=== PATIENT | female | born 1965 | race Hispanic/Latino ===

== ENCOUNTER 2021-08-23 19:19 | Emergency (ER) | payer MEDICAID, OTHER ==
[~2021-08-23] VITALS: Ht 157.5 cm; Wt 68.0 kg
[2021-08-23] MEDS ORDERED: ONDANSETRON 4MG INJ ONE (19:23)
[2021-08-23 19:38] LABS: BASOPHILS % (AUTO) 0.2 % (0.0-5.0); EOSINOPHILS % (AUTO) 0.1 % (0.0-8.0); HEMATOCRIT 43.5 % (36-48); LYMPHOCYTES % (AUTO) 10.7 % (21.0-51.0); MEAN CORPUSCULAR HGB CONC 33.1 g/dL (32.0-36.0); MEAN CORPUSCULAR VOLUME 84.6 fL (79-99); MONOCYTES % (AUTO) 3.1 % (3.0-13.0); NEUTROPHILS % (AUTO) 85.5 % (40.0-77.0); PLATELET COUNT (AUTO) 391 K/uL (130-400); RED BLOOD CELL COUNT(AUTO) 5.14 MIL/uL (4.00-5.50); RED CELL DISTRIBUTION WIDTH 12.7 % (11.0-15.5); WHITE BLOOD COUNT (AUTO) 12.8 K/uL (4.8-10.8)
[2021-08-23 19:49] LABS: INR 0.99 (0.85-1.15); PROTHROMBIN TIME 10.8 SEC (9.6-11.6)
[2021-08-23 19:50] LABS: PARTIAL THROMBOPLASTIN TIME 24.6 SEC (26.3-35.5)
[2021-08-23 20:05] LABS: B-TYPE NATRIURETIC PEPTIDE 21 pg/mL (0-100)
[2021-08-23 20:09] LABS: APPEARANCE,URINE Clear (CLEAR); BILIRUBIN,URINE Negative (NEGATIVE); COLOR,URINE Yellow (YELLOW); GLUCOSE, URINE (UA) >=1000 mg/dL (NEGATIVE); KETONES,URINE >=160 mg/dL (NEGATIVE); LEUKOCYTE ESTERASE ,URINE Negative (NEGATIVE); NITRATE,URINE Negative (NEGATIVE); OCCULT BLOOD,URINE Negative (NEGATIVE); PROTEIN,URINE Trace mg/dL (NEGATIVE); UROBILINOGEN,URINE 0.2 mg/dL (0.2-1.0)
[2021-08-23 20:20] LABS: AMPHET/METH SCREEN,URINE NEGATIVE (NEGATIVE); BARBITURATE SCREEN, URINE NEGATIVE (NEGATIVE); BENZODIAZEPINES SCREEN,URINE NEGATIVE (NEGATIVE); CANNABINOID SCREEN,URINE NEGATIVE (NEGATIVE); COCAINE SCREEN,URINE NEGATIVE (NEGATIVE); OPIATE SCREEN,URINE NEGATIVE (NEGATIVE); PHENCYCLIDINE SCREEN,URINE NEGATIVE (NEGATIVE)
[2021-08-23 20:26] LABS: ALBUMIN 3.3 g/dL (3.5-5.0); BILIRUBIN,TOTAL 0.5 mg/dL (0.2-1.0); TOTAL PROTEIN, SERUM 8.4 g/dL (6.0-8.3)
[2021-08-23] MEDS ORDERED: IOHEXOL-350 75 ML VIAL IV ONE (20:27)
[2021-08-23 20:29] LABS: BACTERIA,URINE None Seen /HPF (None Seen); RBC,URINE None Seen /HPF (0-1); WBC,URINE None Seen /HPF (0-1)
[2021-08-23] MEDS ORDERED: LORAZEPAM 2 MG/ML 1 ML VIAL ONE (20:39)
[2021-08-23] MEDS ORDERED: LORAZEPAM 2 MG/ML 1 ML VIAL IVP ONE (21:00)
[2021-08-23 21:10] LABS: AMMONIA < 3 umol/L (11-32)
[2021-08-24] MEDS ORDERED: ONDANSETRON 4MG INJ ONE (01:12)
[2021-08-24 11:28] LABS: ABG OXYGEN SATURATION 62.7 % (95.0-99.0); HCO3,VENOUS BLOOD GAS 14.5 (21.0-28.0); PCO2,VENOUS BLOOD GAS 35 (32-45); PH,VENOUS BLOOD GAS 7.234 (7.350-7.450)
[2021-08-24] MEDS ORDERED: LORAZEPAM 2 MG/ML 1 ML VIAL ONE (11:40)
[2021-08-24 11:56] LABS: ALBUMIN 3.3 g/dL (3.5-5.0); CREATININE 1.3 mg/dL (0.5-1.5); POTASSIUM 4.4 mmol/L (3.5-5.1)
[2021-08-24 12:00] LABS: BILIRUBIN,TOTAL 0.5 mg/dL (0.2-1.0); TOTAL PROTEIN, SERUM 8.6 g/dL (6.0-8.3)
[2021-08-24] MEDS ORDERED: FOSPHENYTOIN SODIUM 100 MG/2 ML VIAL IV SCH (12:00)
[2021-08-24] MEDS ORDERED: 0.9%NACL 1000ML 1,000 ML IV ONE (12:00)
[2021-08-24] MEDS ORDERED: LORAZEPAM 2 MG/ML 1 ML VIAL IVP ONE (12:00)
[2021-08-24] MEDS ORDERED: COMPOUND IV MISC 1 EACH IVSOLN MISC PRN (12:30)
[2021-08-24] MEDS ORDERED: INSULIN HUMULIN R 100 UNIT/ML 3ML IV ONE (12:30)
[2021-08-24] MEDS ORDERED: FOSPHENYTOIN SODIUM 100 MG/2 ML VIAL IV ONE (12:44)
[2021-08-24] MEDS ORDERED: [UNRECOGNIZED DRUG - OTHER] IJ SCH (13:00)
[2021-08-24] MEDS ORDERED: FOSPHENYTOIN SODIUM IJ SCH (13:00)
[2021-08-24] MEDS ORDERED: LEVETIRACETAM 1,000 MG in 0.9%NACL 100ML 100 ML IV SCH (14:00)
[2021-08-24] MEDS ORDERED: INSULIN HUMULIN R 100 UNIT/ML 3ML ONE (17:48)
[2021-08-24] MEDS: 0.9%NACL 1000ML 1,000 ML IV SCH (18:00)
[2021-08-24] MEDS: INSULIN HUMULIN R 100 UNIT/ML 3ML SQ SCH ×2 (18:02→21:33)
[2021-08-24] MEDS ORDERED: INSULIN HUMULIN R 100 UNIT/ML 3ML SQ SCH (21:00)
[2021-08-25] MEDS: INSULIN HUMULIN R 100 UNIT/ML 3ML SQ SCH ×2 (07:45→12:04)
[2021-08-25] MEDS ORDERED: COMPOUND IV REFRIGERATED 1 EACH IVSOLN MISC PRN (09:30)
[2021-08-25] MEDS ORDERED: FOSPHENYTOIN SODIUM 100 MG/2 ML VIAL IV SCH (09:30)
[2021-08-25] MEDS ORDERED: FOSPHENYTOIN SODIUM 100 MG in 0.9%NACL 50ML 50 ML IV SCH (09:30)
[2021-08-25 09:41] LABS: BASOPHILS % (AUTO) 0.1 % (0.0-5.0); EOSINOPHILS % (AUTO) 0.2 % (0.0-8.0); HEMATOCRIT 37.2 % (36-48); LYMPHOCYTES % (AUTO) 11.5 % (21.0-51.0); MEAN CORPUSCULAR HEMOGLOBIN 27.1 pg (27.0-33.0); MEAN CORPUSCULAR VOLUME 84.7 fL (79-99); PLATELET COUNT (AUTO) 269 K/uL (130-400); RED BLOOD CELL COUNT(AUTO) 4.39 MIL/uL (4.00-5.50); WHITE BLOOD COUNT (AUTO) 13.9 K/uL (4.8-10.8)
[2021-08-25 09:50] LABS: CREATININE 1.2 mg/dL (0.5-1.5)
[2021-08-25 09:52] LABS: PHENYTOIN (DILANTIN) 17.2 mcg/mL (10.0-20.0)
[2021-08-25] MEDS: 0.9%NACL 1000ML 1,000 ML IV SCH (09:58)
[2021-08-25] MEDS ORDERED: POTASSIUM BICARB/CIT AC 25 MEQ TABLET.EFF PO SCH (11:30)
[2021-08-25] MEDS ORDERED: PHENYLEPHRINE HCL 10 MG/ML 1ML VIAL IV ONE (11:30)
[2021-08-25 14:11] VITALS: BP 125/51
== END 2021-08-25 14:43 | disposition short-term general hospital (02) ==
LOC: EDH 19:19 → EDBD 19:19 → EDH 08-25 14:43
DX: I63.9 Cerebral infarction, unspecified (principal); G40.909 Epilepsy, unspecified, not intractable, without status epilepticus; Z20.822 Contact with and (suspected) exposure to COVID-19
CPT/HCPCS: 36415 ×3; 70450; 70496; 70498; 70551; 71045; 80048; 80053 ×2; 80185; 80305; 81001; 82010; 82140; 82270; 82550; 82803; 82948 ×6; 83605; 83721; 83880; 84484; 85025 ×2; 85610; 85730; 87426; 87804 ×2; 92522; 92610; 93005; 96361; 96365; 96375 ×2; 99285; J1815 ×5; J2060 ×2; J2405 ×2; J3490 ×4; J7030; J1953; J2370; Q2009; Q9967

== ENCOUNTER 2021-09-02 12:25 | Emergency (ER) | payer MEDICAID ==
[~2021-09-02] VITALS: Ht 147.3 cm; Wt 61.2 kg
[2021-09-02] MEDS ORDERED: 0.9%NACL 1000ML 1,000 ML IV ONE (13:00)
[2021-09-02 13:14] LABS: BASOPHILS % (AUTO) 0.3 % (0.0-5.0); EOSINOPHILS % (AUTO) 0.8 % (0.0-8.0); HEMATOCRIT 33.8 % (36-48); LYMPHOCYTES % (AUTO) 18.5 % (21.0-51.0); MEAN CORPUSCULAR HEMOGLOBIN 28.5 pg (27.0-33.0); MEAN CORPUSCULAR HGB CONC 32.8 g/dL (32.0-36.0); MEAN CORPUSCULAR VOLUME 86.7 fL (79-99); NEUTROPHILS % (AUTO) 70.6 % (40.0-77.0); PLATELET COUNT (AUTO) 260 K/uL (130-400); RED CELL DISTRIBUTION WIDTH 13.2 % (11.0-15.5); WHITE BLOOD COUNT (AUTO) 9.3 K/uL (4.8-10.8)
[2021-09-02 13:41] LABS: APPEARANCE,URINE Cloudy (CLEAR); BILIRUBIN,URINE Negative (NEGATIVE); COLOR,URINE Yellow (YELLOW); GLUCOSE, URINE (UA) >=1000 mg/dL (NEGATIVE); KETONES,URINE Negative (NEGATIVE); LEUKOCYTE ESTERASE ,URINE Small (NEGATIVE); NITRATE,URINE Negative (NEGATIVE); OCCULT BLOOD,URINE Small (NEGATIVE); PH,URINE 5.5 (5.0-8.0); PROTEIN,URINE POS 2+ mg/dL (NEGATIVE); UROBILINOGEN,URINE 0.2 mg/dL (0.2-1.0)
[2021-09-02 13:42] LABS: ALBUMIN 2.6 g/dL (3.5-5.0); BILIRUBIN,TOTAL 0.1 mg/dL (0.2-1.0); CREATININE 0.9 mg/dL (0.5-1.5); POTASSIUM 3.7 mmol/L (3.5-5.1); TOTAL PROTEIN, SERUM 6.7 g/dL (6.0-8.3)
[2021-09-02] MEDS ORDERED: INSULIN HUMULIN R 100 UNIT/ML 3ML SQ SCH (14:00)
[2021-09-02 14:05] LABS: BACTERIA,URINE Moderate /HPF (None Seen); RBC,URINE 0-1 /HPF (0-1)
[2021-09-02 16:02] VITALS: BP 136/51
== END 2021-09-02 16:19 | disposition home or self-care (01) ==
LOC: EDH 12:25
DX: E11.65 Type 2 diabetes mellitus with hyperglycemia (principal); Z79.4 Long term (current) use of insulin; Z86.73 Personal history of transient ischemic attack (TIA), and cerebral infarction without residual deficits
CPT/HCPCS: 36415; 80053; 81001; 82948; 84484; 85025; 87077; 87088; 87186; 93005; 96360; 96361; 96372; 99284; J1815; J7030

== ENCOUNTER 2022-02-19 12:32 | Emergency (ER) | payer MEDICAID ==
[~2022-02-19] VITALS: Ht 147.3 cm; Wt 63.5 kg
[2022-02-19 13:14] LABS: BASOPHILS % (AUTO) 0.2 % (0.0-5.0); EOSINOPHILS % (AUTO) 0.5 % (0.0-8.0); HEMATOCRIT 43.5 % (36-48); LYMPHOCYTES % (AUTO) 22.4 % (21.0-51.0); MEAN CORPUSCULAR HEMOGLOBIN 26.8 pg (27.0-33.0); MEAN CORPUSCULAR HGB CONC 32.4 g/dL (32.0-36.0); MEAN CORPUSCULAR VOLUME 82.7 fL (79-99); MONOCYTES % (AUTO) 5.5 % (3.0-13.0); NEUTROPHILS % (AUTO) 71.3 % (40.0-77.0); PLATELET COUNT (AUTO) 337 K/uL (130-400); RED BLOOD CELL COUNT(AUTO) 5.26 MIL/uL (4.00-5.50); RED CELL DISTRIBUTION WIDTH 14.2 % (11.0-15.5); WHITE BLOOD COUNT (AUTO) 8.4 K/uL (4.8-10.8)
[2022-02-19 13:40] LABS: CARBON DIOXIDE 30 mmol/L (21-32); CHLORIDE 97 mmol/L (101-111); CREATININE 1.1 mg/dL (0.5-1.5); GLOMERULAR FILTR. RATE CALC 55 mL/min (>60); GLUCOSE,RANDOM 279 mg/dL (70-105); POTASSIUM 4.2 mmol/L (3.5-5.1); SODIUM SERUM 138 mmol/L (136-145); UREA NITROGEN, BLOOD 16 mg/dL (7-18)
[2022-02-19 13:45] LABS: ALANINE AMINOTRANSFERASE 28 U/L (12-78); ALBUMIN 3.6 g/dL (3.5-5.0); ASPARTATE AMINOTRANSFERASE 20 U/L (10-37); TOTAL PROTEIN, SERUM 8.7 g/dL (6.0-8.3)
[2022-02-19 14:11] LABS: APPEARANCE,URINE Clear (CLEAR); BILIRUBIN,URINE Negative (NEGATIVE); COLOR,URINE Yellow (YELLOW); GLUCOSE, URINE (UA) >=1000 mg/dL (NEGATIVE); KETONES,URINE 15 mg/dL (NEGATIVE); LEUKOCYTE ESTERASE ,URINE Negative (NEGATIVE); NITRATE,URINE Negative (NEGATIVE); OCCULT BLOOD,URINE Negative (NEGATIVE); PROTEIN,URINE 300 mg/dL (NEGATIVE)
[2022-02-19 14:19] LABS: BACTERIA,URINE Rare /HPF (None Seen); RBC,URINE 0-1 /HPF (0-1); SQUAMOUS EPITHELIAL CELL,UR Moderate /HPF (0-2)
[2022-02-19] MEDS ORDERED: ONDANSETRON 4MG INJ IVP ONE (15:00)
[2022-02-19] MEDS ORDERED: 0.9%NACL 1000ML 1,000 ML IV ONE (15:00)
[2022-02-19] MEDS ORDERED: MORPHINE 4 MG SYG IVP ONE (15:00)
[2022-02-19 15:32] LABS: MAGNESIUM 2.2 mg/dL (1.80-2.40)
[2022-02-19] MEDS ORDERED: ORPHENADRINE CITRATE 30 MG/ML ML IVP ONE (16:30)
[2022-02-19] MEDS ORDERED: KETOROLAC 30MG VIAL (30MG/ML) IVP ONE (16:30)
[2022-02-19] MEDS ORDERED: PANTOPRAZOLE 40 MG/VIAL IVP ONE (16:30)
[2022-02-19] MEDS ORDERED: PANT40TA55 PO (17:32)
[2022-02-19] MEDS ORDERED: ONDA-104 PO (17:32)
[2022-02-19 18:07] VITALS: BP 140/53
== END 2022-02-19 18:06 | disposition home or self-care (01) ==
LOC: EDH 12:32
DX: R11.2 Nausea with vomiting, unspecified (principal); E86.0 Dehydration; R10.11 Right upper quadrant pain; M54.6 Pain in thoracic spine; R10.13 Epigastric pain; E11.9 Type 2 diabetes mellitus without complications; Z98.890 Other specified postprocedural states
CPT/HCPCS: 99285; 74176; 96374; 71045; 96361; 96375; 83735; 80053; 83690; 85025; 82010; 81001; 36415; J7030; J2405; J2270

== ENCOUNTER 2022-05-12 09:19 | Emergency (ER) | payer MEDICAID ==
[~2022-05-12] VITALS: Ht 142.2 cm; Wt 68.0 kg
[~2022-05-12 09:19] MED LIST: ONDA-104 PO; PANT40TA55 PO
[2022-05-12] MEDS: SOLU-MEDROL 125MG VIAL IVP SCH (11:00)
[2022-05-12 13:51] LABS: APPEARANCE,URINE CLEAR (CLEAR); BILIRUBIN,URINE NEGATIVE (NEGATIVE); COLOR,URINE LIGHT-YELLOW (YELLOW); GLUCOSE, URINE (UA) >=1000 mg/dL (NEGATIVE); KETONES,URINE NEGATIVE (NEGATIVE); LEUKOCYTE ESTERASE ,URINE NEGATIVE Leu/uL (NEGATIVE); NITRATE,URINE NEGATIVE (NEGATIVE); OCCULT BLOOD,URINE NEGATIVE (NEGATIVE); PH,URINE 6.5 (5.0-8.0); PROTEIN,URINE 10 mg/dL (NEGATIVE); UROBILINOGEN,URINE 0.2 mg/dL (0.2-1.0)
[2022-05-12 14:16] VITALS: BP 142/50
[2022-05-12 14:38] LABS: BACTERIA,URINE Rare /HPF (None Seen); RBC,URINE 0-1 /HPF (0-1); SQUAMOUS EPITHELIAL CELL,UR 0-2 /HPF (0-2); WBC,URINE 0-1 /HPF (0-1)
[2022-05-12] MEDS ORDERED: METH4TAB3 PO (14:51)
[2022-05-12 15:23] LABS: BASOPHILS % (AUTO) 0.2 % (0.0-5.0); HEMATOCRIT 39.8 % (36-48); LYMPHOCYTES % (AUTO) 11.5 % (21.0-51.0); MEAN CORPUSCULAR HGB CONC 33.9 g/dL (32.0-36.0); MEAN CORPUSCULAR VOLUME 82.6 fL (79-99); MONOCYTES % (AUTO) 0.5 % (3.0-13.0); NEUTROPHILS % (AUTO) 87.6 % (40.0-77.0); PLATELET COUNT (AUTO) 305 K/uL (130-400); RED BLOOD CELL COUNT(AUTO) 4.82 MIL/uL (4.00-5.50); RED CELL DISTRIBUTION WIDTH 13.6 % (11.0-15.5); WHITE BLOOD COUNT (AUTO) 8.3 K/uL (4.8-10.8)
[2022-05-12] MEDS: SOLU-MEDROL 125MG VIAL IVP ONE (15:23)
[2022-05-12 15:43] LABS: ALBUMIN 3.4 g/dL (3.5-5.0); CREATININE 0.9 mg/dL (0.5-1.5); POTASSIUM 4.1 mmol/L (3.5-5.1); TOTAL PROTEIN, SERUM 8.1 g/dL (6.0-8.3)
== END 2022-05-12 15:37 | disposition home or self-care (01) ==
LOC: EDH 09:19
DX: S39.012A Strain of muscle, fascia and tendon of lower back, initial encounter (principal); E11.40 Type 2 diabetes mellitus with diabetic neuropathy, unspecified; M79.18 Myalgia, other site; M54.2 Cervicalgia; Z20.822 Contact with and (suspected) exposure to COVID-19; Z79.52 Long term (current) use of systemic steroids; Z86.73 Personal history of transient ischemic attack (TIA), and cerebral infarction without residual deficits; Z79.899 Other long term (current) drug therapy; X58.XXXA Exposure to other specified factors, initial encounter; Y93.89 Activity, other specified; Y92.89 Other specified places as the place of occurrence of the external cause; Y99.8 Other external cause status
CPT/HCPCS: 99285; 96374; 71045; 87635; 84484; 80053; 85025; 87804 ×2; 81001; 36415; 93005; C9803; J2930